=== PATIENT | male | born 1955 | race Caucasian/White ===

== ENCOUNTER → 2018-12-04 | Outpatient (CLI) | payer OTHER ==
--- NOTE | 2018-12-05 04:36 | REP ---
Clinical: Left lower extremity diabetic ulcer. Technique: Real time lópez scale and color Doppler evaluation of the left lower extremity arterial vasculature using linear high frequency transducer. Findings: The ankle to brachial index of the left lower extremity is 0.7. The mid to distal superficial femoral artery is occluded and there is evidence for a left common femoral artery to the tibioperoneal trunk graft. Proximal anastomoses demonstrates biphasic arterial wave pattern at 135 cm/sec; the mid graft demonstrates biphasic wave pattern and 57 cm/sec; distal anastomoses demonstrates monophasic arterial wave pattern at 54 cm/sec. The popliteal artery proximal to the level of the distal graft anastomoses demonstrates reversed monophasic flow at 38 cm/sec. PSV(cm/sec) LEFT Common femoral artery 196.7 cm/sec biphasic Profunda femoris artery 159.6 cm/sec monophasic Proximal superficial femoral artery 47 cm/sec monophasic Mid superficial femoral artery occluded Distal superficial femoral artery occluded Popliteal artery 38 cm/sec monophasic* Proximal WALDO 36 cm/sec monophasic Tibioperoneal trunk 98 cm/sec monophasic Proximal ADVANCED QUALITY ENGINEER 44 cm/sec monophasic Distal ADVANCED QUALITY ENGINEER 34 cm/sec monophasic Distal WALDO 37 cm/sec monophasic Impression: 1. Occluded mid to distal superficial femoral artery with patent graft extending from the common femoral artery to the tibioperoneal trunk. Electronically Signed by Shaun Hernandez MD 12/05/2018 04:26 A
== END ==
LOC: M RAD 09:36
PROVIDERS: ATTEND Surgery
DX: E11.621 Type 2 diabetes mellitus with foot ulcer (principal)

== ENCOUNTER → 2018-12-17 | Outpatient (CLI) | payer OTHER ==
[2018-12-17 16:33] LABS: BASO # 0.1 10^3/uL (0.0-0.2); BASO % 0.6 % (0.0-1.0); EOS # 0.3 10^3/uL (0.0-0.50); EOS % 2.7 % (0.0-3.0); HEMATOCRIT 42.4 % (42.0-52.0); HEMOGLOBIN 14.4 g/dl (13.5-17.5); LYMPH # 2.8 10^3/uL (1.5-4.5); LYMPH % 22.9 % (24.0-44.0); MEAN CORPUSCULAR HEMOGLOBIN 32.1 pg (27.0-33.0); MEAN CORPUSCULAR VOLUME 94.4 fl (80.0-96.0); MONO # 0.8 10^3/uL (0.0-0.8); MONO % 6.8 % (0.0-5.0); NEUTROPHILS # 8.3 10^3/uL (1.8-7.7); NEUTROPHILS % 66.4 % (36.0-66.0); PLATELET COUNT, AUTOMATED 239 10^3/uL (150-450); RED BLOOD COUNT 4.49 10^6/uL (4.30-6.10); WHITE BLOOD COUNT 12.4 10^3/uL (4.0-10.0)
[2018-12-17 16:51] LABS: BLOOD UREA NITROGEN 16 MG/DL (7-18); CALCIUM LEVEL 9.4 MG/DL (8.8-10.2); CARBON DIOXIDE LEVEL 30 MEQ/L (21-32); CHLORIDE LEVEL 106 MEQ/L (98-107); CREATININE FOR GFR 0.98 MG/DL (0.70-1.30); GLOMERULAR FILTRATION RATE > 60.0 (>49); GLUCOSE, FASTING 147 MG/DL (70-100); POTASSIUM SERUM 5.1 MEQ/L (3.5-5.1); SODIUM LEVEL 139 MEQ/L (136-145)
== END ==
LOC: M LAB 16:08
PROVIDERS: ATTEND Surgery Vascular Surgery
DX: I70.213 Atherosclerosis of native arteries of extremities with intermittent claudication, bilateral legs (principal)

== ENCOUNTER → 2019-02-05 | Outpatient (CLI) | payer OTHER ==
[~2019-02-05] MED LIST: ASPI81TA26 PO; CARV25TA; CLOP75TA2; D 50CAP; LISI-538; METF10004; PRAV40TA2
--- NOTE | 2019-02-06 04:07 | REP ---
Clinical: Left lower extremity peripheral vascular disease. Technique: Real time lópez scale and color Doppler evaluation of the left lower extremity arterial vasculature using linear high frequency transducer. Findings: The ankle to brachial index of the left lower extremity is 0.92 Moderate to significant diffuse atherosclerotic changes are appreciated. An in-situ greater saphenous vein bypass graft (BPG) extends from the common femoral artery to the posterior tibial artery and appears patent without evidence for stenosis. Areas of stenosis are identified involving the origin of the superficial femoral artery and Profunda femoris. Beyond the focal stenosis at the proximal superficial femoral artery there is complete occlusion extending to the distal SFA with reversed flow noted at the level of the popliteal artery extending into genicular arteries. PSV(cm/sec) LEFT Common femoral (anastomosis) 144 cm/s (triphasic) BPG 102-121 cm/s (monophasic) MECHANICAL PRESS OPERATOR (anastomosis) 134 cm/s (monophasic) Profunda femoris artery 407/203 cm/s (biphasic) Proximal superficial femoral artery occluded Mid superficial femoral artery occluded Distal superficial femoral artery occluded Popliteal artery reversed flow Proximal WALDO 40.1 cm/s (monophasic) Tibioperoneal trunk 109 cm/s (monophasic) Proximal MECHANICAL PRESS OPERATOR 135 cm/s (monophasic) Distal MECHANICAL PRESS OPERATOR 93.5 cm/s (monophasic) Distal WALDO 92.5 cm/s (monophasic) Impression: 1. Patent CLIENT SERVICES VICE PRESIDENT - MECHANICAL PRESS OPERATOR bypass graft using in-situ greater saphenous vein. 2. Moderate to significant atherosclerotic disease including areas of stenosis and occlusion involving the Profunda and proximal to distal superficial femoral artery. Electronically Signed by Shaun Hernandez MD 02/06/2019 03:58 A
== END ==
LOC: M RAD 10:03
PROVIDERS: ATTEND Surgery Vascular Surgery
DX: I70.212 Atherosclerosis of native arteries of extremities with intermittent claudication, left leg (principal); I70.402 Unspecified atherosclerosis of autologous vein bypass graft(s) of the extremities, left leg

== ENCOUNTER → 2019-02-18 | Outpatient (CLI) | payer OTHER ==
[2019-02-18 10:07] LABS: HEMATOCRIT 43.5 % (42.0-52.0); HEMOGLOBIN 14.7 g/dl (13.5-17.5); MEAN CORPUSCULAR HEMOGLOBIN 32.9 pg (27.0-33.0); MEAN CORPUSCULAR HGB CONC 33.8 g/dl (32.0-36.5); MEAN CORPUSCULAR VOLUME 97.3 fl (80.0-96.0); PLATELET COUNT, AUTOMATED 234 10^3/uL (150-450); RED BLOOD COUNT 4.47 10^6/uL (4.30-6.10); WHITE BLOOD COUNT 12.1 10^3/uL (4.0-10.0)
[2019-02-18 10:25] LABS: BLOOD UREA NITROGEN 16 MG/DL (7-18); CARBON DIOXIDE LEVEL 26 MEQ/L (21-32); CHLORIDE LEVEL 107 MEQ/L (98-107); GLOMERULAR FILTRATION RATE > 60.0 (>49); GLUCOSE, FASTING 194 MG/DL (70-100); POTASSIUM SERUM 4.7 MEQ/L (3.5-5.1); SODIUM LEVEL 140 MEQ/L (136-145)
== END ==
LOC: M LAB 09:25
PROVIDERS: ATTEND Surgery Vascular Surgery
DX: Z01.818 Encounter for other preprocedural examination (principal)

== ENCOUNTER → 2019-03-16 | Outpatient (CLI) | payer OTHER ==
[~2019-03-16] MED LIST changes: +BUPIVACAINE HCL 0.5% 10 ML VIAL As Ordered ONE; +HEPARIN 1,000 UNITS/ML 10ML VIAL (FOR RADIOLOGY& DIALYSIS ONLY) As Ordered ONE; +ISOVUE-300 61% 50ML VIAL (Q9967) As Ordered ONE; +LIDOCAINE 2% MDV 20 ML VIAL As Ordered ONE; +MIDAZOLAM INJ 2 MG/2 ML VIAL (J2250) As Ordered ONE; +diphenhydrAMINE INJ 50MG/ML VIAL (J1200) As Ordered ONE; +fentaNYL 100 MCG/2 ML INJECTION (J3010) As Ordered ONE
[2019-03-16 12:35] VITALS: BP 176/76
--- NOTE | 2019-03-19 18:54 | ROOPDOC ---
[facility] Report Of Operation Report of Operation DATE OF PROCEDURE: 03/16/2019 PREPROCEDURE DIAGNOSES: Nonhealing left lower extremity ulcers, left femoral to below knee popliteal artery vein bypass graft status post angioplasty. POSTPROCEDURE DIAGNOSES: Nonhealing left lower extremity ulcers, left femoral to below knee popliteal artery vein bypass graft status post angioplasty PROCEDURE: Right common femoral arterial cannulation. Selective left common femoral arterial catheter placement with angiogram. Selective left bypass graft catheter placement with angiogram. Minx closure of the right common femoral arteriotomy. SURGEON: Dr. Augustin Quinn M.D. FUEL MANAGEMENT HANDLER: Reyna Zhang INDICATION: The patient is a 63-year-old male with nonhealing left lower extremity ulcers who underwent bypass grafting and was evaluated with angiography which showed stenosis at the anastomosis proximally distally which was treated with angioplasty. Patient underwent an arterial duplex of his left lower extremity which showed stenosis at the proximal and distal anastomosis of the bypass graft. Recommendation was for the patient to undergo angiography of the left lower extremity to evaluate the bypass graft and ensure he has adequate flow into the left lower extremity for healing of the left foot wounds. The procedure was described in detail to the patient. Risks, benefits and alternative treatment options were discussed with the patient. Alternative treatment options including but were not limited to no intervention. Benefits include but were not limited to evaluation of arterial inflow to the left lower extremity with possible intervention improving blood flow to the left foot. Risks included but were not limited to infection, bleeding, renal failure requiring hemodialysis, retroperitoneal hematoma, possible need for surgical intervention, allergic reaction and/or complication from the prepping and draping materials, sedation related complication, possible requirement for transfusion of blood products, scarring of the skin, bruising, nerve injury, anesthetic complications, cerebrovascular accident, myocardial infarction, pulmonary embolus, deep venous thrombosis, loss of limb, loss of life, poor satisfaction and poor outcome. Patient's questions were answered. Patient voices understanding of these risks, benefits and alternative treatment options. Patient voices acceptance of the risks associated with left lower extremity angiogram with possible angioplasty, stent and/or atherectomy and agrees to proceed with the procedure excepting the associated risks of the procedure. There were no guarantees or promises made to the patient regarding the procedure, results and/or outcome of the procedure. ANESTHESIA: Local with sedation with 1 mg of Versed, 50 g of fentanyl, 50 mg of Benadryl and 20 mL of 2% lidocaine mixed with 0.5% Marcaine. SEDATION TIME: 8:00 AM to 8:29 AM for a total of 29 minutes. The sedation was administered by adjusted nurse in the room. The cardiopulmonary monitoring during sedation was performed by the registered nurse in the room. Administration of sedation and cardiopulmonary monitoring were performed under my direct supervision and direction. I was present for and directed the entire case. There were no sedation related complications. Patient was stable post sedation and returned to pre-sedation status. ESTIMATED BLOOD LOSS: 15 mL IVF: 150 mL FLUORO TIME: 0.7 CONTRAST: 3 mL of isovue 300 HEPARIN: [None] PROTAMINE: None COMPLICATION: None DRAINS: None. SPECIMENS: None. IMPLANTS: [5] romanian Mynx closure device to close the right common femoral arteriotomy. PROCEDURE: The patient was taken to the angiography room and placed supine on the angiography room table and then prepped and draped in a standard surgical fashion. A procedural time-out was conducted by myself and the team members in the room, confirming the correct procedure, patient and laterality. The right common femoral artery was then cannulated using a micropuncture needle after anesthetized the overlying skin with 2% lidocaine mixed with 0.5% Marcaine. A micropuncture wire was advanced through the micropuncture needle which was up-sized to a micropuncture sheath. The Scales wire was then advanced through the micropuncture sheath which was up-sized to a 5 Tajik sheath. Aortogram and iliofemoral angiogram were not performed due to the patient's history of of recent angiography. The patient had a strongly palpable 2+ femoral pulses bilaterally. The Omni flush catheter was placed in the aorta and then advanced over the bifurcation of the iliac arteries using the Bentson wire and selectively placed in the left common femoral artery. The Omni flush catheter was placed in the left common femoral artery selectively and a selective left lower extremity angiogram was performed showing no significant stenosis at the proximal anastomosis. The catheter was then advanced into the femoral to popliteal artery bypass graft using the Scales wire and a selective femoral to popliteal artery bypass graft angiogram was performed showing no significant stenosis at the distal anastomosis with 3 vessel runoff into the foot. The right common femoral arteriotomy was closed using a 5 Tajik Mynx closure device with an additional 10 minutes of adjunctive pressure applied for hemostasis which was noted. The patient tolerated the procedure well. All instrument, sponge and needle counts were correct at the end of the case. Dr. Quinn was present for and directed the entire case. Patient was transferred to the recover y area and subsequently to the floor awake, alert and in stable condition. The procedure and results of the procedure were discussed with the patient in the recovery room. RADIOLOGIC SUPERVISION AND INTERPRETATION: The right common femoral artery was cannulated using a micropuncture needle. SELECTIVE LEFT COMMON FEMORAL ARTERY CATHETER PLACEMENT: The selective left common femoral artery catheter placement and angiogram showed the common femoral artery to be widely patent. The profunda femoris artery was patent. The superficial femoral artery was occluded. There was a bypass graft from the common femoral artery to the below knee popliteal artery which was widely patent with no stenosis or obstruction noted. The runoff in the below-knee region was via the anterior tibial posterior tibial which were patent into the foot the peroneal artery was small in size and caliber. Kaleb Quinn MD Mar 16, 2019 21:35
== END ==
LOC: M IRPRO 06:26
PROVIDERS: ATTEND Surgery Vascular Surgery
DX: I70.202 Unspecified atherosclerosis of native arteries of extremities, left leg (principal); L97.829 Non-pressure chronic ulcer of other part of left lower leg with unspecified severity; Z95.820 Peripheral vascular angioplasty status with implants and grafts
CPT/HCPCS: 36247; 75710; 75774; 99152; 99153; C1760; C1769; C1887; C1894; G0269; J1200; J2250; J3010; Q9967

== ENCOUNTER → 2020-08-02 | Outpatient (CLI) | payer OTHER ==
[~2020-08-02] MED LIST changes: -BUPIVACAINE HCL 0.5% 10 ML VIAL As Ordered ONE; -HEPARIN 1,000 UNITS/ML 10ML VIAL (FOR RADIOLOGY& DIALYSIS ONLY) As Ordered ONE; -ISOVUE-300 61% 50ML VIAL (Q9967) As Ordered ONE; -LIDOCAINE 2% MDV 20 ML VIAL As Ordered ONE; -MIDAZOLAM INJ 2 MG/2 ML VIAL (J2250) As Ordered ONE; -diphenhydrAMINE INJ 50MG/ML VIAL (J1200) As Ordered ONE; -fentaNYL 100 MCG/2 ML INJECTION (J3010) As Ordered ONE
--- NOTE | 2020-08-02 15:42 | REP ---
INDICATION: PAD COMPARISON: 02/05/2019 TECHNIQUE: Real time loo scale and color Doppler evaluation of the bilateral lower extremity arterial vasculature using linear high frequency transducer. FINDINGS: Loo scale and color images demonstrate moderate amounts of bilateral atheromatous plaquing. Right lower extremity demonstrates occlusion at the distal anterior tibial artery with distal revascularization. Left lower extremity demonstrates severe stenosis at the profundus and occlusion to the mid/distal superficial femoral artery. A patent left bypass graft is identified extending from the common femoral artery to the proximal posterior tibial artery. Bypass graft velocities: Proximal anastomosis 107 cm/sec (monophasic) Mid thigh 94.1 cm/sec (monophasic) Distal thigh 87.4 cm/sec (monophasic) Distal anastomosis at the calf 125 centimeters/seconds (monophasic) Right MARTIN: 1.0 Left MARTIN: 1.3 Peak systolic velocities (cm/sec) Common femoral artery: Right 188 (triphasic); Left 275 (triphasic) Profunda femoris: Right 154 (triphasic); Left 491 (monophasic) SFA (proximal): Right 106 (triphasic); Left 117 (monophasic) SFA (mid): Right 130 (triphasic) ; Left occluded SFA (distal): Right 90 (biphasic); Left occluded Popliteal artery: Right 40 (triphasic); Left reversed flow WALDO (prox.): Right 50 (monophasic); Left 85 (triphasic) Tibioperoneal trunk: Right 41 (triphasic); Left reversed flow MANAGER FASHION (prox.): Right 38 (biphasic); Left 61 (monophasic) MANAGER FASHION (distal): Right 42 (biphasic); Left 88 (monophasic) WALDO (distal): Right occluded; Left 79 (monophasic) IMPRESSION: Atherosclerotic changes with areas of occlusion as described above. Patent left bypass graft noted. <Electronically signed by Shaun Hernandez > 08/02/20 [id number]
== END ==
LOC: M RAD 07:11
PROVIDERS: ATTEND Physician Assistant
DX: I70.245 Atherosclerosis of native arteries of left leg with ulceration of other part of foot (principal); I70.235 Atherosclerosis of native arteries of right leg with ulceration of other part of foot; L97.529 Non-pressure chronic ulcer of other part of left foot with unspecified severity; Z95.1 Presence of aortocoronary bypass graft

== ENCOUNTER → 2021-01-26 | Outpatient (CLI) | payer OTHER, MEDICAID ==
[~2021-01-26] MED LIST changes: -CARV25TA; +CARV25TA PO; -CLOP75TA2; +CLOP75TA2 PO; +COVI30VI IM; +HYDR-3490 PO; -LISI-538; +LISI20TA33; +LISI20TA33 PO; -METF10004; +METF10004 PO; +OZEM2INJ SC; -PRAV40TA2; +PRAV40TA2 PO; +VITA200012 PO
== END ==
LOC: M LABSMTC 10:03
PROVIDERS: ATTEND Anesthesiology
DX: Z01.812 Encounter for preprocedural laboratory examination (principal); Z11.52 Encounter for screening for COVID-19

== ENCOUNTER 2021-01-31 06:40 | Day surgery (SDC) | payer OTHER, MEDICAID ==
[~2021-01-31] VITALS: Ht 177.8 cm; Wt 77.6 kg
[2021-01-31] MEDS ORDERED: propofoL 200 MG/20 ML VIAL As Ordered ONE (07:02)
[2021-01-31] MEDS ORDERED: LIDOCAINE 2% 100MG/5ML SDV (FOR ANES.) As Ordered ONE (07:02)
[2021-01-31] MEDS ORDERED: fentaNYL 100 MCG/2 ML INJECTION (J3010) As Ordered ONE (07:03)
[2021-01-31] MEDS: NS 1,000 ML IV SCH (07:04)
--- NOTE | 2021-01-31 07:41 | ROOR ---
Patient Name: Stuart Dsouza Procedure Date: 01/31/2021 7:29 AM Date of : 1955 Age: 65 Room: [facility] Gender: Male Note Status: Finalized Procedure: Upper GI endoscopy Indications: Iron deficiency anemia Providers: Nils Martinez MD Referring MD: LUCERO VALLE MD Requesting Provider: Medicines: Monitored Anesthesia Care Complications: No immediate complications. Procedure: Pre-Anesthesia Assessment: - The heart rate, respiratory rate, oxygen saturations, blood pressure, adequacy of pulmonary ventilation, and response to care were monitored throughout the procedure. The Endoscope was introduced through the mouth, and advanced to the second part of duodenum. The upper GI endoscopy was accomplished without difficulty. The patient tolerated the procedure well. Findings: The esophagus was normal. The stomach was normal. The examined duodenum was normal. Impression: - Normal esophagus. - Normal stomach. - Normal examined duodenum. - No specimens collected. Recommendation: - Continue present medications. - Return to referring physician as previously scheduled. Procedure Code(s): --- Professional --- 12575, Esophagogastroduodenoscopy, flexible, transoral; diagnostic, including collection of specimen(s) by brushing or washing, when performed (separate procedure) Diagnosis Code(s): --- Professional --- D50.9, Iron deficiency anemia, unspecified CPT copyright 2019 [employer]. All rights reserved. The codes documented in this report are preliminary and upon sales representative cash registers review may be revised to meet current compliance requirements. Nils Martinez MD Nils Martinez MD 01/31/2021 7:41:03 AM Electronically signed by Nils Martinez MD Number of Addenda: 0 Note Initiated On: 01/31/2021 7:29 AM Estimated Blood Loss: Estimated blood loss: none.
--- NOTE | 2021-01-31 08:00 | ROOR ---
Patient Name: Stuart Dsouza Procedure Date: 01/31/2021 7:30 AM Date of : 1955 Age: 65 Room: [facility] Gender: Male Note Status: Finalized Procedure: Colonoscopy Indications: Iron deficiency anemia Providers: Nils Martinez MD Referring MD: LUCERO VALLE MD Requesting Provider: Medicines: Monitored Anesthesia Care Complications: No immediate complications. Procedure: Pre-Anesthesia Assessment: - The heart rate, respiratory rate, oxygen saturations, blood pressure, adequacy of pulmonary ventilation, and response to care were monitored throughout the procedure. The Colonoscope was introduced through the anus and advanced to the cecum, identified by appendiceal orifice and ileocecal valve. The colonoscopy was performed without difficulty. The patient tolerated the procedure well. The quality of the bowel preparation was good. Findings: The perianal and digital rectal examinations were normal. Internal hemorrhoids were found during retroflexion. The hemorrhoids were medium-sized. The entire examined colon appeared normal on direct and retroflexion views. Impression: - Internal hemorrhoids. - The entire colon is normal on direct and retroflexion views. - No specimens collected. Recommendation: - Continue present medications. - Return to referring physician as previously scheduled. - Resume Plavix (clopidogrel) at prior dose today. Procedure Code(s): --- Professional --- 21425, Colonoscopy, flexible; diagnostic, including collection of specimen(s) by brushing or washing, when performed (separate procedure) Diagnosis Code(s): --- Professional --- D50.9, Iron deficiency anemia, unspecified K64.8, Other hemorrhoids CPT copyright 2019 [employer]. All rights reserved. The codes documented in this report are preliminary and upon manager heavy duty review may be revised to meet current compliance requirements. Nils Martinez MD Nils Martinez MD 01/31/2021 8:00:03 AM Electronically signed by Nils Martinez MD Number of Addenda: 0 Note Initiated On: 01/31/2021 7:30 AM Estimated Blood Loss: Estimated blood loss: none.
[2021-01-31] MEDS ORDERED: LABETALOL 100MG/20ML VIAL As Ordered ONE (08:01)
[2021-01-31 08:21] VITALS: BP 122/57
== END 2021-01-31 08:23 | disposition home or self-care (01) ==
LOC: M OPP 06:40
PROVIDERS: ATTEND Internal Medicine Gastroenterology
DX: D50.9 Iron deficiency anemia, unspecified (principal); K64.8 Other hemorrhoids; I25.10 Atherosclerotic heart disease of native coronary artery without angina pectoris; I25.2 Old myocardial infarction; I10 Essential (primary) hypertension; E78.5 Hyperlipidemia, unspecified; E11.9 Type 2 diabetes mellitus without complications; M19.90 Unspecified osteoarthritis, unspecified site; F17.210 Nicotine dependence, cigarettes, uncomplicated; Z95.5 Presence of coronary angioplasty implant and graft; Z88.8 Allergy status to other drugs, medicaments and biological substances; Z79.82 Long term (current) use of aspirin; Z79.84 Long term (current) use of oral hypoglycemic drugs; Z79.899 Other long term (current) drug therapy; Z83.3 Family history of diabetes mellitus; Z82.49 Family history of ischemic heart disease and other diseases of the circulatory system
CPT/HCPCS: 43235; 45378; J3010

== ENCOUNTER → 2021-12-15 | Outpatient (REF) | payer OTHER, MEDICAID | LOC: M LAB REF 12:21 | PROVIDERS: ATTEND Podiatrist Foot & Ankle Surgery | DX: M86.272 Subacute osteomyelitis, left ankle and foot (principal) ==

== ENCOUNTER → 2022-04-19 | Outpatient (CLI) | payer OTHER, MEDICAID | LOC: M RAD 08:31 | PROVIDERS: ATTEND Physician Assistant | DX: F17.210 Nicotine dependence, cigarettes, uncomplicated (principal) ==

== ENCOUNTER → 2025-03-22 | Outpatient (REF) | payer MEDICAID, OTHER ==
[~2025-03-22] MED LIST changes: -PRAV40TA2 PO; +PRAV40TA85 PO
== END ==
LOC: M SFHCWOUN 17:19
PROVIDERS: ATTEND Physician Assistant
DX: L97.512 Non-pressure chronic ulcer of other part of right foot with fat layer exposed (principal)